=== PATIENT | female | born 1995 | race Caucasian/White ===

== ENCOUNTER 2018-06-24 18:47 | Emergency (ER) | payer OTHER ==
[~2018-06-24] VITALS: Ht 167.6 cm; Wt 73.0 kg
[~2018-06-24 18:47] MED LIST: BIRTH CONTROL
[2018-06-24 18:50] VITALS: BP 133/82
== END 2018-06-24 19:19 | disposition home or self-care (01) ==
LOC: ED 19:00
DX: R05 Cough (principal)
CPT/HCPCS: 71046; 99284